=== PATIENT | female | born 1985 | race Caucasian/White ===

== ENCOUNTER 2020-05-02 10:55 | Observation (INO) ==
[2020-05-02] MEDS ORDERED: oxyCODONE SR 10 mg TAB ONE (11:25)
[2020-05-02] MEDS ORDERED: Ondansetron 4 mg VIAL 2 MG/ML 2 ml VIAL ONE (11:25)
[2020-05-02 11:53] LABS: Activated Partial Thrombo Time 36.5 seconds (26.0-38.0); INR 1.08 (0.82-1.09)
[2020-05-02] MEDS ORDERED: Lidocaine 1% VIAL 10 MG/ML VIAL ONE (12:25)
[2020-05-02] MEDS ORDERED: Heparin 2 UNITS/ML IVPREMIX 3,000 UNIT/1,500 ML BAG IV ONE (12:25)
[2020-05-02] MEDS ORDERED: Iohexol 350 (CONTRAST) 200 ML MDV IV ONE ×2 (12:25→14:10)
[2020-05-02] MEDS ORDERED: fentaNYL 100 mcg/2 ml 50 MCG/ML VIAL ONE ×2 (12:37→14:14)
[2020-05-02] MEDS ORDERED: Midazolam 5 mg/5 ml VIAL 1 mg/ml 5 ml VIAL (5 mg) ONE (12:37)
[2020-05-02] MEDS ORDERED: nitroGLYCERIN DRIP 25,000 MCG/250 ML BTL ONE (12:53)
[2020-05-02] MEDS ORDERED: HYDROmorphone PCA 1 MG/ML Titrat per Protocol PCA SCH (13:00)
[2020-05-02] MEDS ORDERED: Clindamycin 900 MG/D5W BAG IVPB ONE (13:00)
[2020-05-02] MEDS ORDERED: HYDROmorphone 1 MG/1 ML SYRINGE ONE (14:26)
[2020-05-02] MEDS ORDERED: Prochlorperazine 5 mg/ml 2 ml VIAL (10 mg) ONE (14:55)
[2020-05-02] MEDS: Ondansetron 4 mg VIAL 2 MG/ML 2 ml VIAL IV SCH (19:56)
[2020-05-02] MEDS: NS 0.9% 1,000 ML IV SCH (21:43)
[2020-05-03] MEDS: Ondansetron 4 mg VIAL 2 MG/ML 2 ml VIAL IV SCH ×2 (01:43→08:33)
[2020-05-03] MEDS: NS 0.9% 1,000 ML IV SCH (04:09)
[2020-05-03] MEDS ORDERED: HYDROcodone/ACETAMIN 5/325 mg TAB PO PRN (08:46)
[2020-05-03] MEDS ORDERED: Multivitamins/Minerals TAB PO SCH (09:00)
[2020-05-03] MEDS ORDERED: Ketorolac 10 mg TAB (NF) PO SCH (09:00)
[2020-05-03] MEDS ORDERED: Atomoxetine 60 MG CAP (NF) PO SCH (09:00)
[2020-05-03] MEDS ORDERED: Atomoxetine 10 mg CAP (NF) PO SCH (09:00)
[2020-05-03 11:16] VITALS: BP 124/73
== END 2020-05-03 12:50 | disposition home or self-care (01) ==
LOC: EDACCT# → SSU 10:55 → CHICATH 10:55
PROVIDERS: ADMIT Radiology Diagnostic Radiology; ATTEND Pediatrics
PROC: ANG.UFE (2020-05-02 12:10)